=== PATIENT | female | born 1945 ===

== ENCOUNTER 2024-05-26 20:51 | Observation (INO) | payer MEDICARE, OTHER ==
[~2024-05-26] VITALS: Ht 167.6 cm; Wt 72.6 kg
[2024-05-26] MEDS ORDERED: Lyrica300 MG PO (21:56)
[2024-05-26] MEDS ORDERED: LOSA50 PO (21:57)
[2024-05-26] MEDS ORDERED: FLUO10 PO (21:57)
[2024-05-26] MEDS ORDERED: OXYCODONE-ACET1 EAC3 PO (21:57)
[2024-05-26] MEDS ORDERED: GEMFIBROZIL600 MG PO (21:57)
[2024-05-26] MEDS ORDERED: EUTHYROX50 MC1 PO (21:57)
[2024-05-26] MEDS ORDERED: NORTRIPTYLINE H5012 PO (21:57)
[2024-05-26 22:13] LABS: BASOPHILS ABSOLUTE AUTO 0.07 K/mm3 (0.00-0.23); BASOPHILS PERCENT AUTO 1 % (0-2); EOSINOPHILS ABSOLUTE AUTO 0.09 K/mm3 (0.00-0.68); EOSINOPHILS PERCENT AUTO 2 % (0-6); Hematocrit 35.9 % (33.0-51.0); Hemoglobin 12.3 g/dL (11.5-16.0); IMMATURE GRAN ABSOLUTE AUTO 0.04 K/mm3 (0.00-0.10); IMMATURE GRAN PERCENT AUTO 1 % (0-1); LYMPHOCYTES ABSOLUTE AUTO 2.08 K/mm3 (0.84-5.20); LYMPHOCYTES PERCENT AUTO 36 % (21-46); MONOCYTES ABSOLUTE AUTO 0.57 K/mm3 (0.16-1.47); MONOCYTES PERCENT AUTO 10 % (4-13); Mean Corpuscular HGB 29.4 pg (26.0-34.0); Mean Corpuscular HGB Conc 34.3 g/dL (31.5-36.5); Mean Corpuscular Volume 86 fL (80-100); Mean Platelet Volume 11.2 fL (9.1-12.4); NEUTROPHILS ABSOLUTE AUTO 2.86 K/mm3 (1.96-9.15); NEUTROPHILS PERCENT AUTO 50 % (41-73); Platelet Count 190 K/mm3 (150-400); RDW Coefficient Variation 12.7 % (11.7-14.2); RDW Standard Deviation 39.6 fL (35.1-46.3); Red Blood Cell Count 4.18 M/mm3 (3.80-5.20); White Blood Cell Count 5.71 K/mm3 (4.00-11.30)
[2024-05-26 22:28] LABS: Albumin, Blood 3.9 g/dL (3.4-5.0); Albumin/Globulin Ratio 1.1 (0.8-1.8); Bilirubin, Total 0.4 mg/dL (0.1-1.0); Bun/Creatinine Ratio 22.8 (12.0-20.0); Calcium, Blood 9.7 mg/dL (8.5-10.1); Creatinine, Blood 0.74 mg/dL (0.40-1.00); Globulin, Blood 3.7 g/dL (2.2-4.0); Potassium, Blood 3.9 mmol/L (3.5-5.5); Total Protein, Blood 7.6 g/dL (6.4-8.2)
[2024-05-26 22:38] LABS: Magnesium, Blood 2.5 mg/dL (1.6-2.4)
[2024-05-26 22:59] LABS: Source, Urine Clean Catch
[2024-05-26 23:01] LABS: Thyroid Stimulating Hormone 1.93 uIU/mL (0.360-4.800)
[2024-05-26 23:03] LABS: Bilirubin, Urine Neg (Neg); Blood, Urine Neg (Neg); Glucose Qualitative, Urine Neg (Neg); Ketones, Urine Neg (Neg); Leukocyte Esterase, Urine Neg (Neg); Nitrite, Urine Neg (Neg); Protein, Urine Neg (Neg); Urobilinogen, Urine NORM (Normal)
[2024-05-26 23:22] LABS: Appearance, Urine Clear (Clear); Color, Urine Pale Yellow (P-Yellow)
[2024-05-26 23:25] LABS: Influenza A, PCR NEGATIVE (NEGATIVE); Influenza B, PCR NEGATIVE (NEGATIVE); Resp Syncytial Virus, PCR NEGATIVE (NEGATIVE); SARS-Cov-2 (COVID-19) PCR, MMC NEGATIVE (NEGATIVE)
[2024-05-27] MEDS ORDERED: PREG300 PO (02:54)
[2024-05-27] MEDS ORDERED: FLU VACC TS2024-25(6MOS UP)/PF 45 MCG/0.5 ML SYRINGE IM ONE (02:55)
[2024-05-27] MEDS ORDERED: Percocet 5-3251 EACH PO (02:55)
[2024-05-27] MEDS ORDERED: PANT40 PO (02:58)
[2024-05-27 04:01] VITALS: BP 177/93
--- NOTE | 2024-05-27 06:01 | NUR ---
ADMIT NOTE FOR 05/27/24 0350 AND SHIFT SUMMARY REPORT WAS RECEIVED FROM THE ER NURSE AND PT WAS BROUGHT DOWN ON THE GURNEY TO ROOM 359. PT VERY WEAK AND HAD A HARD TIME TRANSFERRING OFF OF THE GURNEY TO THE BED. SHE WAS ORIENTED TO HER ROOM AND THE STAFF. PT ALERT ORIENTED X 4 ABLE TO VERBALIZE NEEDS. SHE IS VERY WEAK ON HER LEGS. SHES ABLE TO LIFT HER LEGS UP BUT THEY ARE WEAK. SHE WAS STRAIGHT CATHED AT 2300 IN THE ER. SHE GOT ON THE COMMODE HERE AND TRIED TO URINATE BUT WAS UNABLE TO. HER BP WAS ELEVATED AT 169/91 BUT ALL OTHER VS ARE STABLE ON RA SATTING AT 95%. SHE STATED THAT SHE HAS HAD NO BM X 1 WEEK. WILL PASS ON TO THE AM SHIFT TO GET A ORDER FOR BOWEL CARE. SHE REMAINS ON TELEMETRY AT [facility] AT [facility]. NO C/O CHEST PAIN OR PRESSURE. SHE HAS A SMALL LACERATION TO THE BACKOF HER LT EAR, RT ABDOMEN FOLD RED WITH SKIN SPLIT, SCRATCHES TO BILATERAL LEGS, LT 3RD TOE WITH REDNESS AND SCABBED AREA, RT BIG TOE DRY SCABBED AREA, TOP OF RT FOOT OPEN SORE, TOP OF LT HAND SKIN TEAR. SHES SCHEDULED TO HAVE A MRI OF HEAD TODAY. NO C/O HEADACHE OR DIZZINESS AT THIS TIME. RESTING IN BED AT THIS TIME WITH CALL LIGHT IN REACH
[2024-05-27 07:14] VITALS: BP 182/88
[2024-05-27] MEDS ORDERED: Enoxaparin 40 MG/0.4 ML SYR SC SCH (09:00)
[2024-05-27] MEDS ORDERED: OxyCODONE 5 mg/Acetamin 325 mg TABLET PO PRN (12:25)
[2024-05-27] MEDS ORDERED: FLUoxetine HCl 10 MG Cap PO SCH (13:48)
[2024-05-27] MEDS ORDERED: Pregabalin 75 MG Cap PO SCH (13:49)
[2024-05-27 15:19] VITALS: BP 174/104
[2024-05-27] MEDS ORDERED: Losartan Potassium 50 MG Tab PO SCH ×2 (15:25→21:00)
[2024-05-27 19:10] VITALS: BP 131/82
[2024-05-27] MEDS ORDERED: DICLOFENAC SODI50 GM TOP (19:28)
--- NOTE | 2024-05-27 19:58 | NUR ---
SHIFT SUMMARY- PT HAD A FULL SCHEDULE TODAY, MRI CAROTID US, OT, MEDICATION CHANGES, PAIN IN THE FEET AND LEGS, DR VISITS, CARE MANAGEMENT, HER SPOUSE THIS MORNING, BY THE TIME PHYSICAL THERAPY CAME TO SEE HER SHE WAS "DONE." PT WANTED NO PART IN ANY MORE TESTING AND SHE STATED SHE HAS TO GO HOME. HER HAS [employer]ZHEIMERS AND SHE IS HIS SOLE CARE PROVIDER. CALLED AND TALKED TO DR SOLIS, HOME MEDS WERE ORDERED AND THE DOSES CHANGED TO TODAY. ONCE HER PAIN WAS BETTER MANAGED SHE WAS OK WITH WAITING UNTIL TOMORROW AFTER ALL THE TESTS WERE RAN. THE ONLY OUTSTANDING TESTS ORDERED ARE THE ECHO AND THE PT EVAL. PATIENT IS AWARE OF THE NEED FOR THE EVAL AND WILL BE WILLING TO SEE THEM IN THE MORNING. PT IN THE CHAIR AT THE TIME OF BEDSIDE REPORT, NO S&S OF DISTRESS NOTED AT THE TIME OF SHIFT CHANGE.
[2024-05-27] MEDS ORDERED: Gemfibrozil 600 MG Tab PO SCH (21:00)
[2024-05-28 03:15] VITALS: BP 137/79
[2024-05-28] MEDS ORDERED: Pantoprazole Sodium 40 MG Tab PO SCH (06:00)
--- NOTE | 2024-05-28 06:31 | NUR ---
SHIFT SUMMARY PT SITTING IN CHAIR AT START OF SHIFT. TRANSFERED TO BED WITH WALKER AND 1 ASSIST. SLEPT LONG INTERVALS THROUGH THE NIGHT. MEDICATED X1 WITH PERCOCET FOR PAIN PER EMAR. PT RELUCTANT TO GET UP DURING THE NIGHT TO TRY TO VOID, STATING, "I NEVER NEED TO GO DURING THE NIGHT". PT DENIES FEELING ANY BLADDER PRESSURE. PT ATTEMPTED TO URINATE IN THE BATHROOM AT 0615 WITHOUT SUCCESS. PT STATED THAT IT WAS TOO EARLY AND SHE WASN'T AWAKE YET. PT CURRENTLY SITTING IN CHAIR. PT STATES SHE WILL LET US KNOW WHEN SHE HAS TO VOID. CALL LIGHT WITHIN REACH.
[2024-05-28 07:58] VITALS: BP 142/78
[2024-05-28] MEDS ORDERED: Levothyroxine Sodium 0.05 MG Tab PO SCH (09:00)
[2024-05-28] MEDS ORDERED: Polyethylene Glycol 3350 17 gm PO ONE (13:05)
[2024-05-28] MEDS ORDERED: Aspir 8181 MG PO (13:40)
[2024-05-28] MEDS ORDERED: CLOP75 PO (13:40)
--- NOTE | 2024-05-28 14:35 | NUR ---
DISCHARGE SUMMARY PATIENT DENIES ANY ISSUES TODAY OTHER THAN LACK OF URNIATION AND SMALL BM YESTERDAY. MIRALAX WAS ORDERED, PATIENT STATES SHE WANTS TO WAIT UNTIL SHE GOES HOME FOR THIS SINCE SHE WAS ABLE TO FINALLY URINATE AROUND 1330. PATIENT MEDICATION AND EDUCATION PACKET PRINTED, REVIEWED AND SIGNED BY PATIENT. ALL QUESTIONS ANSWERED. PATIENT LEAVING UNIT VIA TRANSPORT CHAIR AT 1437 WITH SISTER
== END 2024-05-28 14:37 | disposition home health service (06) ==
LOC: ER 20:51 → ERHOLD 20:52 → MEDS 20:52 → ENPENDDIS 05-28 13:46 → MEDS 05-28 14:37
PROVIDERS: Student in an Organized Health Care Education/Training Program; ADMIT Specialist
DX: G45.9 Transient cerebral ischemic attack, unspecified (principal); G62.9 Polyneuropathy, unspecified; R29.6 Repeated falls; G89.29 Other chronic pain
CPT/HCPCS: 0241U; 70450; 70551; 71046; 72125; 73030; 80053; 81003; 83735; 83880; 84443; 84484; 85025; 93005; 93010; 93306; 93880; 96372; 97116; 97162; 97165; 97530; 97535; 99285-25; A9270; G0378; J1650

== ENCOUNTER → 2025-01-27 | Outpatient (CLI) | payer MEDICARE, OTHER ==
[~2025-01-27] MED LIST: Aspir 8181 MG PO; CLOP75 PO; DICLOFENAC SODI50 GM TOP; EUTHYROX50 MC1 PO; FLUO10 PO; GEMFIBROZIL600 MG PO; LOSA50 PO; Lyrica300 MG PO; NORTRIPTYLINE H5012 PO; OXYCODONE-ACET1 EAC3 PO; PANT40 PO; PREG300 PO; Percocet 5-3251 EACH PO
== END ==
LOC: LAB SHORT 19:06 → LAB 19:06
DX: L97.422 Non-pressure chronic ulcer of left heel and midfoot with fat layer exposed (principal)
CPT/HCPCS: 87070; 87205

== ENCOUNTER 2025-04-28 12:47 | Emergency (ER) | payer MEDICARE, OTHER ==
[~2025-04-28] VITALS: Ht 167.6 cm; Wt 79.4 kg
[2025-04-28 13:58] LABS: BASOPHILS ABSOLUTE AUTO 0.06 K/mm3 (0.00-0.23); BASOPHILS PERCENT AUTO 1 % (0-2); EOSINOPHILS ABSOLUTE AUTO 0.09 K/mm3 (0.00-0.68); EOSINOPHILS PERCENT AUTO 1 % (0-6); Hematocrit 35.8 % (33.0-51.0); Hemoglobin 12.4 g/dL (11.5-16.0); IMMATURE GRAN ABSOLUTE AUTO 0.06 K/mm3 (0.00-0.10); IMMATURE GRAN PERCENT AUTO 1 % (0-1); LYMPHOCYTES ABSOLUTE AUTO 2.06 K/mm3 (0.84-5.20); LYMPHOCYTES PERCENT AUTO 26 % (21-46); MONOCYTES ABSOLUTE AUTO 0.81 K/mm3 (0.16-1.47); MONOCYTES PERCENT AUTO 10 % (4-13); Mean Corpuscular HGB Conc 34.6 g/dL (31.5-36.5); Mean Corpuscular Volume 87 fL (80-100); NEUTROPHILS ABSOLUTE AUTO 4.88 K/mm3 (1.96-9.15); NEUTROPHILS PERCENT AUTO 61 % (41-73); NRBC ABSOLUTE 0.00 K/mm3 (0.00-0.02); NRBC Auto 0.0 /100 WBC (0.0-0.2); Platelet Count 208 K/mm3 (150-400); RDW Coefficient Variation 12.9 % (11.7-14.2); RDW Standard Deviation 40.4 fL (35.1-46.3)
[2025-04-28 14:17] LABS: Alanine Aminotransfer (ALT/SGP 26.0 U/L (12-78); Albumin, Blood 3.6 g/dL (3.4-5.0); Albumin/Globulin Ratio 1.1 (0.8-1.8); Anion Gap 9.0 mmol/L (3-11); Aspartate Aminotrans (AST/SGOT 35.0 U/L (12-37); Bilirubin, Total 0.4 mg/dL (0.1-1.0); Blood Urea Nitrogen 15.0 mg/dL (8-24); CO2, Blood 26.0 mmol/L (21-32); Calcium, Blood 8.6 mg/dL (8.5-10.1); Chloride, Blood 97.0 mmol/L (98-108); Creatinine, Blood 0.6 mg/dL (0.40-1.00); Globulin, Blood 3.2 g/dL (2.2-4.0); Glucose, Blood 79.0 mg/dL (70-99); Potassium, Blood 3.8 mmol/L (3.5-5.5); Sodium, Blood 128.0 mmol/L (136-145); Total Protein, Blood 6.8 g/dL (6.4-8.2)
== END 2025-04-28 18:42 | disposition home or self-care (01) ==
LOC: ER 12:47
PROVIDERS: Physician Assistant
DX: I10 Essential (primary) hypertension (principal); Z88.0 Allergy status to penicillin; Z79.899 Other long term (current) drug therapy
CPT/HCPCS: 80053; 85025; 93005; 93010; 99283-25